=== PATIENT | male | born 1975 | race Caucasian/White ===

== ENCOUNTER 2024-06-07 06:23 | Day surgery (SDC) | payer BC, SELFPAY ==
[2024-06-07 10:29] VITALS: BMI 34.0
[2024-06-07 10:30] VITALS: BMI 34.0
[2024-06-07 10:35] VITALS: BP 125/79
[2024-06-07] MEDS: TYLENOL 1000 MG PO (10:42)
[2024-06-07 14:18] VITALS: BP 120/62; BP 125/79
[2024-06-07 14:30] VITALS: BP 128/74
[2024-06-07 14:45] VITALS: BP 130/65
[2024-06-07 15:20] VITALS: BP 128/70
[2024-06-07 15:40] VITALS: BP 126/71
== END 2024-06-07 16:31 | disposition home or self-care (01) ==
LOC: SDS 06:23
PROVIDERS: ATTENDING PHYSICIAN Surgery
DX: K40.90 Unilateral inguinal hernia, without obstruction or gangrene, not specified as recurrent (principal)
CPT/HCPCS: 49650; C1781

== ENCOUNTER → 2024-06-26 06:28 | Day surgery (SDC) | payer BC, SELFPAY | LOC: GI 06:28 | PROVIDERS: ATTENDING PHYSICIAN Student in an Organized Health Care Education/Training Program | DX: K20.80 Other esophagitis without bleeding (principal); K22.2 Esophageal obstruction; K22.89 Other specified disease of esophagus; R13.14 Dysphagia, pharyngoesophageal phase | CPT/HCPCS: 43249; 43239; 88305 ==

== ENCOUNTER → 2024-07-07 10:02 | Outpatient (REF) | payer BC, SELFPAY ==
[2024-07-07 12:32] LABS: Hematocrit 43.3 % (39.0-52.0); Hemoglobin 14.4 g/dL (13.0-18.0); Mean Corp Hgb Conc. 33.3 g/dL (33.0-37.0); Mean Corpuscular Hgb 27.5 pg (27.0-31.0); Mean Corpuscular Volume 82.6 fL (80.0-94.0); Mean Platelet Volume 10.3 fL (7.4-10.4); Platelet Count 247 10^3/uL (130-400); Red Blood Cell Count 5.24 10^6/uL (4.70-6.10); Red Cell Dist. Width 13.4 % (11.5-14.5); White Blood Cell Count 5.6 10^3/uL (4.8-10.8)
[2024-07-07 12:42] LABS: ALT (SGPT) 46 U/L (0-50); AST (SGOT) 37 U/L (17-59); Albumin 4.7 g/dl (3.5-5.0); Alkaline Phosphatase 51 U/L (38-126); Blood Urea Nitrogen 19 mg/dl (9-20); Calcium 9.2 mg/dl (8.4-10.2); Carbon Dioxide 31 mmol/L (22-30); Chloride 101 mmol/L (98-107); Glucose 106 mg/dl (70-99); Potassium 4.2 mmol/L (3.5-5.1); Sodium 138 mmol/L (135-145); Total Bilirubin 0.6 mg/dl (0.2-1.3); Total Protein 7.4 g/dl (6.3-8.2); eGFR > 60.00
[2024-07-07 13:16] LABS: Hepatitis B Surface Antigen Negative (Negative)
[2024-07-07 13:27] LABS: INR 0.97; PT 13.2 Sec (11.4-14.6)
[2024-07-07 13:34] LABS: Hepatitis A Antibody, Total Negative (Negative); Hepatitis B Core Ab, Total Negative (Negative); Hepatitis B Surface Antibody Negative; Hepatitis C Antibody Negative (Negative)
[2024-07-08 22:55] LABS: Endomysial IgA Antibody Titer <1:10 (<1:10)
[2024-07-10 05:34] LABS: IgA 93 mg/dl (70-400)
== END ==
LOC: HWLAB 10:02
PROVIDERS: ATTENDING PHYSICIAN Student in an Organized Health Care Education/Training Program; FAMILY PHYSICIAN Nurse Practitioner Family
DX: K76.0 Fatty (change of) liver, not elsewhere classified (principal)
CPT/HCPCS: 36415; 80053; 82784; 83516; 85027; 85610; 86231; 86704; 86706; 86708; 86803; 87340

== ENCOUNTER → 2024-07-11 12:14 | Outpatient (REF) | payer BC, SELFPAY | LOC: RAD 12:14 | PROVIDERS: ATTENDING PHYSICIAN Student in an Organized Health Care Education/Training Program; FAMILY PHYSICIAN Nurse Practitioner Family | DX: R93.5 Abnormal findings on diagnostic imaging of other abdominal regions, including retroperitoneum (principal); K76.0 Fatty (change of) liver, not elsewhere classified | CPT/HCPCS: 76700 ==

== ENCOUNTER 2024-09-12 06:12 | Day surgery (SDC) | payer BC, SELFPAY ==
[2024-09-12 09:50] VITALS: BP 126/71; BMI 34.0
[2024-09-12 09:55] VITALS: BMI 34.0
[2024-09-12 11:31] VITALS: BP 115/76
[2024-09-12 11:45] VITALS: BP 117/61
[2024-09-12 11:53] VITALS: BP 109/57
== END 2024-09-12 12:05 | disposition home or self-care (01) ==
LOC: SDS 06:12
PROVIDERS: ATTENDING PHYSICIAN Internal Medicine Gastroenterology
DX: K22.89 Other specified disease of esophagus (principal); K20.90 Esophagitis, unspecified without bleeding
CPT/HCPCS: 43251; 43239; 88305